=== PATIENT | female | born 2000 | race Two or more races ===

== ENCOUNTER 2020-04-10 09:00 | Emergency (ER) | payer OTHER, SELFPAY ==
[~2020-04-10] VITALS: Ht 157.5 cm; Wt 65.6 kg
[2020-04-10 09:02] VITALS: BP 137/84
--- NOTE | 2020-04-10 09:18 | NUR ---
pt to room from triage with a steadu gait. warm blanket provided, and lights dimmed for comfort of fernandes.
--- NOTE | 2020-04-10 09:22 | NUR ---
MD IS AT THE BEDSIDE FOR ASSESSMENT
--- NOTE | 2020-04-10 09:35 | NUR ---
parent is at the bedside. we are awaiting lab for diagnostic testing. pt is comfortable on an e.r. gurney at this time.
== END 2020-04-10 11:21 | disposition home or self-care (01) ==
LOC: ED 09:14
DX: B27.90 Infectious mononucleosis, unspecified without complication (principal); R94.31 Abnormal electrocardiogram [ECG] [EKG]
CPT/HCPCS: 36415; 86308; 87081; 87147; 87880; 93005; 99284

== ENCOUNTER 2020-04-12 14:24 | Emergency (ER) | payer OTHER ==
[~2020-04-12] VITALS: Ht 157.5 cm; Wt 67.0 kg
--- NOTE | 2020-04-12 14:51 | NUR ---
AIDS NURSE: PT TO ROOM FROM LOBBY.
--- NOTE | 2020-04-12 14:57 | NUR ---
PATIENT SEEN Monday04/10/2020 IN ER FOR C/O MARRERO. PATIENT WENT HOME WITH RX FOR NAPROXEN, HOWEVER, MARRERO HAS NOT GOTTEN ANY BETTER. PATIENT HAD SOME BLURRY VISION 04/11/2020, WHICH HAS SINCE RESOLVED. PATIENT WOKE UP THIS MORNING WITH NUMBNESS IN HER FACE AND BILATERAL HAND NUMBNESS AND C/O /10 MARRERO, PATIENT TOOK ADVIL AT HOME WITH NO RELIEF. PATIENT A&OX4, NEURO INTACT OTHERWISE.
[2020-04-12] MEDS ORDERED: METOCLOPRAMIDE 10MG TABLET ONE (15:25)
[2020-04-12] MEDS ORDERED: KETOROLAC 60 MG/2 ML ONE (15:25)
[2020-04-12] MEDS ORDERED: DIPHENHYDRAMINE 25 MG CAPSULE ONE (15:25)
[2020-04-12] MEDS ORDERED: DIPHENHYDRAMINE 25 MG CAPSULE PO ONE (15:30)
[2020-04-12] MEDS ORDERED: METOCLOPRAMIDE 10MG TABLET PO ONE (15:30)
[2020-04-12] MEDS ORDERED: KETOROLAC 30 MG/1 ML IM ONE (15:30)
--- NOTE | 2020-04-12 15:34 | NUR ---
PATIENT MEDICATED PER [facility], EDUCATED ABOUT URINE SAMPLE. PATIENT WILL TRY TO LEAVE SAMPLE AFTER LAB IS DONE DRAWING HER BLOOD. NO FURTHER NEEDS AT THIS TIME.
[2020-04-12 15:54] LABS: ALANINE AMINOTRANSFERASE 16 U/L (12-78); ALBUMIN 3.3 g/dL (3.4-5.0); ANION GAP 5 mmol/L (5-15); CALCIUM 8.6 mg/dL (8.5-10.1); CHLORIDE 109 mmol/L (98-107); CREATININE 0.78 mg/dL (0.55-1.02)
[2020-04-12 15:56] LABS: ALKALINE PHOSPHATASE 72 U/L (45-117); BASOPHILS # (AUTO) 0.03 x10^3/uL (0-0.1); BASOPHILS % (AUTO) 0 % (0-1); BILIRUBIN,TOTAL 0.5 mg/dL (0.2-1.0); EOSINOPHILS # (AUTO) 0.15 x10^3/uL (0-0.4); EOSINOPHILS % (AUTO) 2 % (1-7); LYMPHOCYTES % (AUTO) 22 % (22-44); MD NO; MEAN CORPUSCULAR HEMOGLOBIN 26.8 pg (27.0-34.8); MEAN CORPUSCULAR HGB CONC 31.7 g/dL (32.4-35.8); MEAN CORPUSCULAR VOLUME 84.6 fL (80-100); MEAN PLATELET VOLUME 8.6 fL (7.4-10.4); MONOCYTES # (AUTO) 0.47 x10^3/uL (0.2-0.8); MONOCYTES % (AUTO) 5 % (2-9); NEUTROPHILS # (AUTO) 6.27 x10^3/uL (1.8-6.8); NEUTROPHILS % (AUTO) 71 % (42-75); PLATELET COUNT 338 x10^3/uL (130-400); RED BLOOD COUNT 4.69 x10^6/uL (3.82-5.3); RED CELL DISTRIBUTION WIDTH 13.9 % (9.6-15.2); TOTAL PROTEIN 6.9 g/dL (6.4-8.2)
[2020-04-12 16:01] VITALS: BP 107/70
--- NOTE | 2020-04-12 16:02 | NUR ---
URINE SAMPLE COLLECTED AND SENT TO LAB, PATIENT STATES HER PAIN LEVEL IS DOWN FROM A 9/10 TO 7/10. MOTHER AT BEDSIDE, NO FURTHER NEEDS AT THIS TIME.
--- NOTE | 2020-04-12 16:30 | NUR ---
PT TO AND FROM [place] W TECH. SHE TOLERATED THE IMAGING WELL.
[2020-04-12 16:40] LABS: MICROSCOPIC NOT IND
--- NOTE | 2020-04-12 17:21 | NUR ---
Patient and mother given discharge instructions and they have confirmed that they understand the instructions. Patient ambulatory with steady gait.
== END 2020-04-12 17:22 | disposition home or self-care (01) ==
LOC: ED 17:22
DX: G44.52 New daily persistent headache (NDPH) (principal)
CPT/HCPCS: 36415; 70450; 80053; 81003; 85025; 96372; 99284; J1885; Q0163